=== PATIENT | female | born 1945 | race African-American/Black ===

== ENCOUNTER 2016-10-21 22:37 | Emergency (ER) | payer OTHER ==
[~2016-10-21] VITALS: Ht 160 cm; Wt 81.0 kg
[~2016-10-21 22:37] MED LIST: AMLODIPINE; GLIPIZIDE PO; LASIX; LOVASTATIN; METOPROLOL
[2016-10-21 23:53] LABS: BASOPHILS % 0.5 % (0.0-2.0); EOSINOPHILS % 6.9 % (0.0-5.0); HEMATOCRIT. 39.6 % (36.0-48.0); HEMOGLOBIN. 12.3 g/dL (12.0-16.0); LYMPHOCYTES % 28.8 % (20.0-50.0); MEAN CORPUSCULAR HEMOGLOBIN 28.9 pg (28.0-32.0); MEAN CORPUSCULAR HGB CONC 31.1 g/dL (31.0-37.0); MEAN CORPUSCULAR VOLUME 92.8 fL (81.0-99.0); MEAN PLATELET VOLUME 9.3 fl (7.4-10.4); MONOCYTES % 12.5 % (2.0-8.0); NEUTROPHILS % 51.3 % (40.0-76.0); PLATELET 257 x1000/uL (130-400); RED BLOOD CELL COUNT 4.26 mill/uL (4.2-5.4); RED CELL DISTRIBUTION WIDTH 17.3 % (11.6-14.6); WHITE BLOOD COUNT 7.4 x1000/uL (4.5-11.0)
[2016-10-21 23:55] LABS: INR 1.4
[2016-10-22] LABS: ALANINE AMINOTRANSFERASE 23 IU/L (13-61); ALBUMIN 2.6 g/dL (3.4-5.0); ANION GAP 17; CALCIUM 8.1 mg/dL (8.5-10.1); CARBON DIOXIDE 26 mEq/L (21-32); CHLORIDE 101 mEq/L (98-107); INDEX HEMOLYSI 2 (1-3); INDEX ICTERIC 1 (1-4); INDEX LIPEMIC 1 (1-3); NT PRO B-TYPE NATRIURETIC PEP 25735 pg/mL (5-125); TROPONIN I 0.17 ng/mL (0.00-0.04); UREA NITROGEN BLOOD 74 mg/dL (7-21); eGFR 5 mL/min (>60)
[2016-10-22 01:29] VITALS: BP 143/69
== END 2016-10-22 02:04 | disposition short-term general hospital (02) ==
LOC: ER 22:37
DX: R06.02 Shortness of breath (principal); N18.9 Chronic kidney disease, unspecified; I12.9 Hypertensive chronic kidney disease with stage 1 through stage 4 chronic kidney disease, or unspecified chronic kidney disease; R05 Cough; E11.9 Type 2 diabetes mellitus without complications; I25.2 Old myocardial infarction; Z88.0 Allergy status to penicillin; Z99.2 Dependence on renal dialysis; Z89.511 Acquired absence of right leg below knee; Z88.2 Allergy status to sulfonamides
CPT/HCPCS: 36415; 71010; 80053; 83880; 84484; 85025; 85610; 93005; 99285; C1893

== ENCOUNTER 2017-02-12 15:15 | Emergency (ER) | payer OTHER ==
[~2017-02-12] VITALS: Ht 160 cm; Wt 100.0 kg
[2017-02-12 16:37] LABS: BASOPHILS % 0.7 % (0.0-2.0); EOSINOPHILS % 4.3 % (0.0-5.0); HEMATOCRIT. 42.1 % (36.0-48.0); HEMOGLOBIN. 13.2 g/dL (12.0-16.0); LYMPHOCYTES % 23.2 % (20.0-50.0); MEAN CORPUSCULAR VOLUME 95.7 fL (81.0-99.0); MEAN PLATELET VOLUME 9.9 fl (7.4-10.4); MONOCYTES % 10.9 % (2.0-8.0); NEUTROPHILS % 60.9 % (40.0-76.0); PLATELET 193 x1000/uL (130-400); RED CELL DISTRIBUTION WIDTH 18.9 % (11.6-14.6)
[2017-02-12 16:53] LABS: CARBON DIOXIDE 28 mEq/L (21-32); CHLORIDE 100 mEq/L (98-107)
[2017-02-12 16:55] LABS: TROPONIN I 0.35 ng/mL (0.00-0.04)
[2017-02-12 17:08] LABS: PROTHROMBIN TIME 46.2 sec (9.4-11.6)
[2017-02-12 17:12] LABS: INR 4.4; PARTIAL THROMBOPLASTIN TIME > 200.0 sec (23.4-31.0)
[2017-02-12] MEDS ORDERED: WARF5TAB76 (17:14)
[2017-02-12] MEDS ORDERED: NORT10CA (17:14)
[2017-02-12] MEDS ORDERED: NPH,100V (17:17)
[2017-02-12] MEDS ORDERED: ATOR20TA65 (17:17)
[2017-02-12] MEDS ORDERED: HYDR-4134 (17:17)
[2017-02-12] MEDS ORDERED: INSLIS (17:17)
[2017-02-12 22:51] VITALS: BP 171/77
== END 2017-02-12 23:43 | disposition short-term general hospital (02) ==
LOC: ER 15:30
DX: I24.9 Acute ischemic heart disease, unspecified (principal); I25.2 Old myocardial infarction; I50.9 Heart failure, unspecified; I12.0 Hypertensive chronic kidney disease with stage 5 chronic kidney disease or end stage renal disease; E11.9 Type 2 diabetes mellitus without complications; N18.6 End stage renal disease; Z89.511 Acquired absence of right leg below knee; Z79.01 Long term (current) use of anticoagulants; Z79.4 Long term (current) use of insulin; Z88.0 Allergy status to penicillin; Z99.2 Dependence on renal dialysis
CPT/HCPCS: 36415; 71010; 80053; 83690; 84484; 85025; 85610; 85730; 93005; 99285

== ENCOUNTER 2017-03-28 13:58 | Inpatient (IN) | payer OTHER ==
[~2017-03-28] VITALS: Ht 152.4 cm; Wt 87.5 kg
[~2017-03-28 13:58] MED LIST changes: +ATOR20TA65 PO; +HYDR-4134 PO; +INSLIS SUBCUT; +NORT10CA PO; +NPH,100V SUBCUT; +WARF5TAB76 PO
[2017-03-28] MEDS ORDERED: TRAMADOL 50MG TABLET PO ONE (14:30)
[2017-03-28 15:10] LABS: BASOPHILS % 0.8 % (0.0-2.0); EOSINOPHILS % 2.6 % (0.0-5.0); HEMOGLOBIN. 11.9 g/dL (12.0-16.0); LYMPHOCYTES % 31.7 % (20.0-50.0); MEAN CORPUSCULAR HEMOGLOBIN 29.2 pg (28.0-32.0); MEAN CORPUSCULAR VOLUME 93.3 fL (81.0-99.0); MEAN PLATELET VOLUME 9.4 fl (7.4-10.4); MONOCYTES % 11.9 % (2.0-8.0); PLATELET 245 x1000/uL (130-400); RED BLOOD CELL COUNT 4.08 mill/uL (4.2-5.4); RED CELL DISTRIBUTION WIDTH 18.5 % (11.6-14.6)
[2017-03-28 15:26] LABS: CARBON DIOXIDE 28 mEq/L (21-32); CHLORIDE 100 mEq/L (98-107); TROPONIN I 0.25 ng/mL (0.00-0.04)
[2017-03-28 15:37] LABS: PROTHROMBIN TIME 86.2 sec (9.4-11.6)
[2017-03-28 15:41] LABS: INR 8.3
[2017-03-28] MEDS ORDERED: MORPHINE SULFATE 4 MG/ML CPJ (NOT FOR IM USE) IV PRN (16:30)
[2017-03-28] MEDS ORDERED: IPRATROPIUM/ALBUTEROL 0.5-3(2.5)MG/3ML NEB INH PRN (16:30)
[2017-03-28] MEDS ORDERED: ONDANSETRON HCL 4MG/2ML VIAL IV PRN (16:30)
[2017-03-28] MEDS ORDERED: GUAIFENESIN 200MG/10ML SUGAR FREE UDC PO PRN (16:30)
[2017-03-28] MEDS ORDERED: ACETAMINOPHEN 325MG TABLET PO PRN (16:30)
[2017-03-28] MEDS ORDERED: CLONIDINE 0.1MG TABLET PO PRN (16:30)
[2017-03-28] MEDS ORDERED: ZOLPIDEM TARTRATE 5MG TABLET PO PRN (16:30)
[2017-03-28] MEDS ORDERED: DIPHENHYDRAMINE 50MG/ML VIAL IV PRN (16:30)
[2017-03-28] MEDS ORDERED: NA PHOS,M-B/NA PHOS,DI-BA ENEMA 118ML PR PRN (16:30)
[2017-03-28] MEDS ORDERED: MAGNESIUM/ALUMINUM HYDROXIDE/SIMETHICONE 30ML UDC PO PRN (16:30)
[2017-03-28] MEDS ORDERED: DOCUSATE SODIUM 100MG CAPSULE PO PRN (16:30)
[2017-03-28] MEDS: TRAMADOL 50MG TABLET PO PRN (17:23)
[2017-03-28 18:30] VITALS: BP 219/92
[2017-03-28] MEDS: AMLODIPINE 10MG TABLET PO SCH (18:47)
[2017-03-28] MEDS: SEVELAMER CARBONATE 800 MG TABLET PO SCH (18:47)
[2017-03-28 20:00] VITALS: BP 155/60
[2017-03-28] MEDS: METOPROLOL TARTRATE 25MG TABLET PO SCH (21:00)
[2017-03-28] MEDS ORDERED: ENOXAPARIN 30MG/0.3ML SYR SUBCUT SCH (21:00)
[2017-03-28] MEDS ORDERED: DEXTROSE 50% WATER 50ML SYRINGE IV PRN (21:45)
[2017-03-28] MEDS ORDERED: WARF7.5T22 PO (22:55)
[2017-03-28] MEDS ORDERED: METO-396 PO (22:55)
[2017-03-28] MEDS ORDERED: NPH,100I SQ (22:55)
[2017-03-28] MEDS ORDERED: FURO-152 PO (22:55)
[2017-03-28] MEDS ORDERED: AMLO2.5T45 PO (22:55)
[2017-03-28] MEDS ORDERED: LOVA10TA54 PO (22:55)
[2017-03-28] MEDS ORDERED: GLIP10TA10 PO (22:57)
[2017-03-28] MEDS: FAMOTIDINE 20MG/2ML VIAL IV SCH (23:03)
[2017-03-28] MEDS ORDERED: CHOL100046 PO (23:14)
[2017-03-28] MEDS ORDERED: SACC250C9 PO (23:14)
[2017-03-28] MEDS ORDERED: SEVE800T8 PO (23:14)
[2017-03-28] MEDS ORDERED: CALC667T5 PO (23:14)
[2017-03-29] VITALS (8 sets, daily range): BP systolic 97–145; BP diastolic 41–73
[2017-03-29 00:21] LABS: CREATINE KINASE MB FRACTION 4.2 ng/mL (0.5-3.6); TROPONIN I 0.21 ng/mL (0.00-0.04)
[2017-03-29] MEDS: TRAMADOL 50MG TABLET PO PRN (02:27)
[2017-03-29] MEDS: BLOOD SUGAR DIAGNOSTIC STRIP TEST SCH ×4 (05:55→20:27)
[2017-03-29] MEDS: INSULIN LISPRO 100 UNITS/ML SUBCUT SCH ×4 (07:22→20:57)
[2017-03-29 07:31] LABS: CREATINE KINASE MB FRACTION 3.8 ng/mL (0.5-3.6); TROPONIN I 0.19 ng/mL (0.00-0.04)
[2017-03-29 07:41] LABS: BASOPHILS % 0.6 % (0.0-2.0); EOSINOPHILS % 4.5 % (0.0-5.0); HEMATOCRIT. 31.9 % (36.0-48.0); LYMPHOCYTES % 35.5 % (20.0-50.0); MEAN CORPUSCULAR HEMOGLOBIN 29.6 pg (28.0-32.0); MEAN CORPUSCULAR VOLUME 94.5 fL (81.0-99.0); MONOCYTES % 16.6 % (2.0-8.0); NEUTROPHILS % 42.8 % (40.0-76.0); PLATELET 221 x1000/uL (130-400); RED BLOOD CELL COUNT 3.37 mill/uL (4.2-5.4); RED CELL DISTRIBUTION WIDTH 18.2 % (11.6-14.6)
[2017-03-29 07:57] LABS: CARBON DIOXIDE 26 mEq/L (21-32); CHLORIDE 100 mEq/L (98-107)
[2017-03-29] MEDS: SEVELAMER CARBONATE 800 MG TABLET PO SCH ×3 (08:55→18:12)
[2017-03-29] MEDS: AMLODIPINE 10MG TABLET PO SCH (08:55)
[2017-03-29] MEDS: METOPROLOL TARTRATE 25MG TABLET PO SCH ×2 (08:56→20:28)
[2017-03-29] MEDS ORDERED: FOLIC ACID/VITAMIN B COMP W-C TABLET PO SCH (09:00)
[2017-03-29] MEDS ORDERED: ASPIRIN 325MG EC TABLET PO SCH (09:00)
[2017-03-29] MEDS: CALCIUM ACETATE 667MG CAPSULE PO SCH ×2 (13:38→18:12)
[2017-03-29] MEDS: FAMOTIDINE 20MG/2ML VIAL IV SCH (20:48)
== END 2017-03-29 21:10 | disposition short-term general hospital (02) | DRG 280 ==
LOC: ER 13:58 → 7WST 15:53 → SUPCPDRO 16:23 → ENRESERV 17:08
PROVIDERS: ADMIT Internal Medicine; ATTEND Internal Medicine
DX: I21.4 Non-ST elevation (NSTEMI) myocardial infarction (principal); I50.33 Acute on chronic diastolic (congestive) heart failure; J96.91 Respiratory failure, unspecified with hypoxia; E44.0 Moderate protein-calorie malnutrition; N18.6 End stage renal disease; D68.9 Coagulation defect, unspecified; E11.22 Type 2 diabetes mellitus with diabetic chronic kidney disease; E83.51 Hypocalcemia; I13.2 Hypertensive heart and chronic kidney disease with heart failure and with stage 5 chronic kidney disease, or end stage renal disease; D63.8 Anemia in other chronic diseases classified elsewhere; E83.52 Hypercalcemia; E87.5 Hyperkalemia; F17.210 Nicotine dependence, cigarettes, uncomplicated; I25.10 Atherosclerotic heart disease of native coronary artery without angina pectoris; T45.515A Adverse effect of anticoagulants, initial encounter; Z79.82 Long term (current) use of aspirin; Z79.01 Long term (current) use of anticoagulants; Z82.49 Family history of ischemic heart disease and other diseases of the circulatory system; Z83.3 Family history of diabetes mellitus; Z89.511 Acquired absence of right leg below knee; Z91.14 Patient's other noncompliance with medication regimen; Z99.2 Dependence on renal dialysis; Y92.89 Other specified places as the place of occurrence of the external cause; Z88.2 Allergy status to sulfonamides; Z88.0 Allergy status to penicillin; Z79.899 Other long term (current) drug therapy; Z79.4 Long term (current) use of insulin; Z68.37 Body mass index [BMI] 37.0-37.9, adult; T45.511A Poisoning by anticoagulants, accidental (unintentional), initial encounter
CPT/HCPCS: 36415; 71010; 73030; 73060; 73090; 80053; 80061; 82550; 82553; 82962; 83036; 84484; 85025; 85610; 93005; 93970; 96374; 99285; J1815; J2270; J3490; J7030